=== PATIENT | female | born 2000 | race African-American/Black ===

== ENCOUNTER 2019-03-17 20:06 | Emergency (ER) | payer MEDICAID ==
[~2019-03-17] VITALS: Ht 160 cm; Wt 52.3 kg
[2019-03-17 20:14] VITALS: BP 136/49
== END 2019-03-17 22:00 | disposition home or self-care (01) ==
LOC: ER 20:06
DX: S99.822A Other specified injuries of left foot, initial encounter (principal); W22.8XXA Striking against or struck by other objects, initial encounter; Y93.89 Activity, other specified; Y92.488 Other paved roadways as the place of occurrence of the external cause
CPT/HCPCS: 73660; 99283